=== PATIENT | male | born 1945 | race Caucasian/White ===

== ENCOUNTER 2019-03-31 15:00 | Emergency (ER) | payer MEDICARE, OTHER ==
[~2019-03-31 15:00] MED LIST: Sodium Chloride 0.9% 10 ML SDV IV PRN; Sodium Chloride 0.9% 10 ML Syringe FLUSH PRN; Sodium Chloride 0.9% 2.5 ML Syringe FLUSH PRN
--- NOTE | 2019-03-31 15:03 | EDM.PDOC ---
ED HPI GENERAL MEDICAL PROBLEM - General Stated Complaint: STROKE Time Seen by Provider: 03/31/19 15:02 Source of Information: Reports: Patient History Limitations: Reports: No Limitations - History of Present Illness INITIAL COMMENTS - FREE TEXT/NARRATIVE: HISTORY AND PHYSICAL: History of present illness: Patient is a 73-year-old male who presents to the emergency room with concerns of slurred speech. Patient was last known well at 3 AM and had slept until approximately 1 PM this afternoon. When he woke up he had slurred speech and minimal left facial droop and weakness. Patient has been seen before by Dr. Shepherd for balance and coordination problems. Was receiving physical and occupational therapy. He denies any recent head injury, trauma or falls. Patient denies any fever, chills, headache, change in vision, syncope or near syncope. Denies any chest pain, back pain, shortness of breath or cough. Denies any abdominal pain, nausea, vomiting, diarrhea, constipation or dysuria. Has not noted any blood in urine or stool. Patient has been eating and drinking appropriately. Review of systems: As per history of present illness and below otherwise all systems reviewed and negative. Past medical history: As per history of present illness and as reviewed below otherwise noncontributory. Surgical history: As per history of present illness and as reviewed below otherwise noncontributory. Social history: See social history for further information Family history: As per history of present illness and as reviewed below otherwise noncontributory. Physical exam: General: Well-developed and well nourished 73-year-old male. Alert and oriented. Slightly slurred speech noted, audible. Nontoxic appearing and in no acute distress. HEENT: Atraumatic, normocephalic, pupils equal and reactive bilaterally, negative for conjunctival pallor or scleral icterus, mucous membranes moist, TMs normal bilaterally, throat clear, does not have teeth, neck supple, nontender, trachea midline. No drooling or trismus noted. No meningeal signs. No hot potato voice noted. Lungs: Clear to auscultation, breath sounds equal bilaterally, chest nontender. Heart: S1S2, regular rate and rhythm without overt murmur Abdomen: Soft, nondistended, nontender. Negative for masses or hepatosplenomegaly. Negative for costovertebral tenderness. Pelvis: Stable nontender. Skin: Intact, warm, dry. No lesions or rashes noted. Extremities: Atraumatic, moves all extremities per self without difficulty or deficits, negative for cords or calf pain. Neurovascular unremarkable. Neuro: Awake, alert, oriented. NIH 3 (1 pt facial droop, 1 pt left arm drift, 1 pt slurred speech). CMS intact to bilateral upper and lower extremities. Notes: MRI of the head on 12/05/18: Mild to moderate generalized atrophy and small vessel ischemic changes. Old tiny right ventricular lacunar infarct. 1512: Head CT shows no acute findings. BS 119. Vital signs are stable. We do not have neurology available. NIH 3: 1 pt facial droop, 1 pt left arm drift, [address] Schuyler Ellis in [place] was consulted, she accepts this patient. Also spoke the neurology, Dr Lux who is agreeable to transfer. Recommends aspirin given prior to arrival. Patient and family are aware. Currently do not have ground transportation available area patient will be flown. Diagnostics: CBC, CMP, PT/INR, head CT, TSH, Troponin, EKG Therapeutics: Saline lock, aspirin Impression: CVA Plan: Transfer to [facility] in [place] Definitive disposition and diagnosis as appropriate pending reevaluation and review of above. - Related Data Allergies Allergy/AdvReac Type Severity Reaction Status Date / Time latex Allergy Hives Verified 03/31/19 15:12 wool Allergy Hives Verified 03/31/19 15:12 ED ROS GENERAL - Review of Systems Review Of Systems: ROS reveals no pertinent complaints other than HPI. ED EXAM, NEURO - Physical Exam Exam: See Below (See dictation) Course - Vital Signs Last Recorded V/S: Last Vital Signs Temp 98.2 F 03/31/19 15:00 Pulse 121 H 03/31/19 15:00 Resp 20 03/31/19 15:00 BP 192/114 H 03/31/19 15:00 Pulse Ox 97 03/31/19 15:00 - Orders/Labs/Meds Orders: Active Orders 24 hr Category Date Time Status Assess Neurological Status [RC] ASDIRECTED Care 03/31/19 15:00 Ordered Cardiac Monitoring [RC] . DIRECTED Care 03/31/19 15:00 Ordered EKG Documentation Completion [RC] STAT Care 03/31/19 15:00 Ordered Initiate Acute Stroke Protocol [RC] STAT Care 03/31/19 15:00 Ordered NIH Stroke Scale [RC] ASDIRECTED Care 03/31/19 15:00 Ordered Oxygen Therapy [RC] ASDIRECTED Care 03/31/19 15:00 Ordered CBC WITH AUTO DIFF [HEME] Stat Lab 03/31/19 15:00 Ordered COMPREHENSIVE METABOLIC PN,CMP [CHEM] Stat Lab 03/31/19 15:00 Ordered INR,PT,PROTHROMBIN TIME [COAG] Stat Lab 03/31/19 15:00 Ordered PTT,PARTIAL THROMBOPLSTIN TIME [COAG] Stat Lab 03/31/19 15:00 Ordered TROPONIN I [CHEM] Stat Lab 03/31/19 15:00 Ordered TSH [CHEM] Stat Lab 03/31/19 15:00 Ordered Sodium Chloride 0.9% [Normal Saline] Med 03/31/19 15:00 Ordered 10 ml IV ASDIRECTED PRN Sodium Chloride 0.9% [Saline Flush] Med 03/31/19 15:00 Ordered 10 ml FLUSH ASDIRECTED PRN Sodium Chloride 0.9% [Saline Flush] Med 03/31/19 15:00 Ordered 2.5 ml FLUSH ASDIRECTED PRN Peripheral IV Insertion Adult [OM.PC] Stat Oth 03/31/19 15:00 Ordered Medication Orders Sodium Chloride (Saline Flush) 10 ml FLUSH ASDIRECTED PRN PRN Reason: Keep Vein Open Sodium Chloride (Saline Flush) 2.5 ml FLUSH ASDIRECTED PRN PRN Reason: Keep Vein Open Sodium Chloride (Normal Saline) 10 ml IV ASDIRECTED PRN PRN Reason: IV Use Meds: Medications Generic Name Dose Route Start Last Admin Trade Name Freq PRN Reason Stop Dose Admin Sodium Chloride 10 ml 03/31/19 15:00 Saline Flush FLUSH ASDIRECTED PRN Keep Vein Open Sodium Chloride 2.5 ml 03/31/19 15:00 Saline Flush FLUSH ASDIRECTED PRN Keep Vein Open Sodium Chloride 10 ml 03/31/19 15:00 Normal Saline IV ASDIRECTED PRN IV Use Discontinued Medications Generic Name Dose Route Start Last Admin Trade Name Freq PRN Reason Stop Dose Admin Aspirin 324 mg 03/31/19 15:29 Aspirin PO 03/31/19 15:30 ONETIME ONE Departure - Departure Time of Disposition: 15:33 Disposition: DC/Tfer to Acute Hospital 02 Clinical Impression: Cerebrovascular accident (CVA) Qualifiers: CVA mechanism: unspecified Qualified Code(s): I63.9 - Cerebral infarction, unspecified - Discharge Information - My Orders Last 24 Hours: My Active Orders 03/31/19 15:00 Assess Neurological Status [RC] ASDIRECTED Cardiac Monitoring [RC] . DIRECTED EKG Documentation Completion [RC] STAT Initiate Acute Stroke Protocol [RC] STAT NIH Stroke Scale [RC] ASDIRECTED Oxygen Therapy [RC] ASDIRECTED CBC WITH AUTO DIFF [HEME] Stat COMPREHENSIVE METABOLIC PN,CMP [CHEM] Stat INR,PT,PROTHROMBIN TIME [COAG] Stat PTT,PARTIAL THROMBOPLSTIN TIME [COAG] Stat TROPONIN I [CHEM] Stat TSH [CHEM] Stat Sodium Chloride 0.9% [Normal Saline] 10 ml IV ASDIRECTED PRN Sodium Chloride 0.9% [Saline Flush] 10 ml FLUSH ASDIRECTED PRN Sodium Chloride 0.9% [Saline Flush] 2.5 ml FLUSH ASDIRECTED PRN Peripheral IV Insertion Adult [OM.PC] Stat - Assessment/Plan Last 24 Hours: My Active Orders 03/31/19 15:00 Assess Neurological Status [RC] ASDIRECTED Cardiac Monitoring [RC] . DIRECTED EKG Documentation Completion [RC] STAT Initiate Acute Stroke Protocol [RC] STAT NIH Stroke Scale [RC] ASDIRECTED Oxygen Therapy [RC] ASDIRECTED CBC WITH AUTO DIFF [HEME] Stat COMPREHENSIVE METABOLIC PN,CMP [CHEM] Stat INR,PT,PROTHROMBIN TIME [COAG] Stat PTT,PARTIAL THROMBOPLSTIN TIME [COAG] Stat TROPONIN I [CHEM] Stat TSH [CHEM] Stat Sodium Chloride 0.9% [Normal Saline] 10 ml IV ASDIRECTED PRN Sodium Chloride 0.9% [Saline Flush] 10 ml FLUSH ASDIRECTED PRN Sodium Chloride 0.9% [Saline Flush] 2.5 ml FLUSH ASDIRECTED PRN Peripheral IV Insertion Adult [OM.PC] Stat
--- NOTE | 2019-03-31 15:16 | CT ---
EXAMINATION: Non contrast CT head. Coronal and sagittal reformats. HISTORY: Stroke code FINDINGS: No evidence of intra or extra axial hemorrhage, mass, midline shift, hydrocephalus or edema. Periventricular and subcortical white matter hypodensities are noted. Old periventricular lacunar infarcts. No hypoattenuation changes in the major vascular territories to suggest acute infarct. No abnormal intracranial calcifications are detected. No evidence of substantial vascular calcifications. Paranasal sinuses and mastoid air cells are well aerated without substantial findings. Pituitary fossa appears unremarkable. Orbits and globes are symmetric. Calvarium is intact. No evidence of skull fracture. IMPRESSION: 1. No acute intracranial findings. 2. Mild small vessel ischemic changes. 3. Old tiny periventricular lacunar infarcts.
[2019-03-31] MEDS ORDERED: Aspirin 81 MG Tab.Chew PO ONE (15:29)
[2019-03-31 15:58] LABS: BLOOD UREA NITROGEN,BUN 12 mg/dL (7.0-18.0); CARBON DIOXIDE,CO2 28.5 mmol/L (21.0-32.0); CHLORIDE,CL 105 mmol/L (98-107); GLUCOSE RANDOM 108 mg/dL (74-106); POTASSIUM,K 3.9 mmol/L (3.5-5.1); SODIUM,NA 141 mmol/L (136-148)
== END 2019-03-31 15:50 ==
LOC: MW.ED 15:00
DX: I63.9 Cerebral infarction, unspecified (principal); F17.210 Nicotine dependence, cigarettes, uncomplicated; Z91.040 Latex allergy status; Z91.048 Other nonmedicinal substance allergy status
CPT/HCPCS: 36415; 70450; 80053; 84443; 84484; 85025; 85610; 85730; 93005; 99285; A9270

== ENCOUNTER 2020-01-12 20:10 | Emergency (ER) | payer MEDICARE, OTHER ==
[2020-01-12] MEDS ORDERED: Sodium Chloride 0.9% 2.5 ML Syringe FLUSH PRN (20:13)
[2020-01-12] MEDS ORDERED: Sodium Chloride 0.9% 10 ML Syringe FLUSH PRN (20:13)
[2020-01-12] MEDS ORDERED: Atropine 0.1 MG/ML 10 ML Syringe IVPUSH ONE ×2 (20:39→21:45)
[2020-01-12 21:01] LABS: BLOOD UREA NITROGEN,BUN 31 mg/dL (7.0-18.0); CARBON DIOXIDE,CO2 25.6 mmol/L (21.0-32.0); CHLORIDE,CL 104 mmol/L (98-107); GLUCOSE RANDOM 134 mg/dL (74-106); POTASSIUM,K 4.8 mmol/L (3.5-5.1); SODIUM,NA 140 mmol/L (136-148)
--- NOTE | 2020-01-12 21:03 | CR ---
Chest: Portable view of the chest was obtained. Comparison: No prior chest imaging. Air is noted between the liver and diaphragm which is felt to represent interposition of bowel which I feel is a normal variant. Heart size and mediastinum are normal. Lungs are clear with no acute parenchymal change. Bony structures are grossly intact. Impression: 1. Nothing acute is appreciated on portable chest x-ray. Diagnostic code #1 This report was dictated in MDT
--- NOTE | 2020-01-12 21:21 | EDM.PDOC ---
ED HPI GENERAL MEDICAL PROBLEM - General Chief Complaint: Cardiovascular Problem Stated Complaint: EMS ARRIVAL Time Seen by Provider: 01/12/20 20:12 Source of Information: Reports: Patient, EMS History Limitations: Reports: No Limitations - History of Present Illness INITIAL COMMENTS - FREE TEXT/NARRATIVE: History of present illness: [Patient is 74-year-old male presents by EMS with bradycardia, vomiting, dizziness. reports that he is dealt with dizziness recently, she also reports that he looks pale compared to his baseline. Patient states he follows up with alida Henry, who was instructed him in the past that he would likely need a pacemaker. On arrival his heart rate is in the 30s. He denies chest pain. He denies shortness of breath. He does endorse some dizziness. He had 1-2 episodes of vomiting earlier today but currently denies nausea. He denies abdominal pain. Denies GI bleed. Denies fever or chills. Denies known exposure to anyone with COVID-19. ] Review of systems: As per history of present illness and below otherwise all systems reviewed and negative. Past medical history: As per history of present illness and as reviewed below otherwise noncontributory. Surgical history: As per history of present illness and as reviewed below otherwise noncontributory. Social history: No reported history of drug or alcohol abuse. Family history: As per history of present illness and as reviewed below otherwise noncontributory. Physical exam: General: Awake, alert, no acute distress, A&O X3. HEENT: Atraumatic, normocephalic, pupils reactive, conjunctival pallor, mucous membranes moist, throat clear, neck supple, nontender, trachea midline. Lungs: Clear to auscultation, breath sounds equal bilaterally, chest nontender. Heart: bradycardic, normal S1S2, no JVD. Abdomen: Soft, nondistended, nontender. Negative for masses or hepatosplenomegaly. Negative for costovertebral tenderness. Pelvis: Stable nontender. Genitourinary: Deferred. Rectal: ANNE MARIE, claim review medical director: BRIE Griffin. Patient is hemoccult positive, no gross blood, no hemorrhoids, no masses. Skin: pale, warm Extremities: Atraumatic, no edema, Neurovascular unremarkable. Neuro: Motor and sensory grossly intact throughout. Exam nonfocal. Diagnostics: [] Therapeutics: [] Impression: [] Plan: [] Definitive disposition and diagnosis as appropriate pending reevaluation and review of above. - Related Data Allergies Allergy/AdvReac Type Severity Reaction Status Date / Time latex Allergy Hives Verified 03/31/19 15:12 wool Allergy Hives Verified 03/31/19 15:12 Home Meds: Home Meds Aspirin 81 mg PO DAILY 01/12/20 [History] carvediloL [Carvedilol] 1 tab PO ASDIRECTED 01/12/20 [History] Past Medical History Genitourinary History: Reports: Renal Calculus Psychiatric History: Reports: Depression - Infectious Disease History Infectious Disease History: Reports: None Social & Family History - Family History Family Medical History: Noncontributory ED ROS GENERAL - Review of Systems Review Of Systems: Comprehensive ROS is negative, except as noted in HPI. ED EXAM, GENERAL - Physical Exam Exam: See Below (see h and p) EKG INTERPRETATION EKG Date: 01/12/20 Time: 20:12 Rhythm: NSR Rate (Beats/Min): 37 [place]: Normal P-Wave: Present QRS: Normal ST-T: Depressed (depressed T waves - V5-6.) QT: Normal Comparison: Change From Previous EKG (previous EKG in 2019 was not bradycardic) EKG Interpretation Comments: sinus aj Course - Vital Signs Text/Narrative:: 1 unit of blood ordered here. Patient has had 2 doses of atropine, responded well both times. Patient will be transferred to [place] for further work-up and evaluation and consultation with cardiology for a likely pacemaker placement. Patient is agreeable with plan to be transported. Currently heart rate is in the 50s. Blood pressure is stable. He is answer questions appropriately. Last Recorded V/S: Last Vital Signs Temp 36.2 C 01/12/20 20:10 Pulse 65 01/12/20 22:36 Resp 17 01/12/20 22:36 BP 123/53 L 01/12/20 22:36 Pulse Ox 98 01/12/20 22:36 - Orders/Labs/Meds Orders: Active Orders 24 hr Category Date Time Status EKG Documentation Completion [RC] STAT Care 01/12/20 20:13 Active RED BLOOD CELLS LP [BBK] Stat Lab 01/12/20 20:50 Results TYPE AND SCREEN [BBK] Stat Lab 01/12/20 20:50 Results Saline Lock Insert [OM.PC] Stat [facility] 01/12/20 20:13 Ordered Transfuse RBC [Transfuse Red Blood Cells] [COMM] Stat [facility] 01/12/20 21:10 Ordered Labs: Laboratory Tests 01/12/20 01/12/20 01/12/20 Range/Units 20:30 20:30 20:30 WBC 6.58 (4.0-11.0) K/uL RBC 3.19 L (4.50-5.90) M/uL Hgb 6.2 L (13.0-17.0) g/dL Hct 22.2 L (38.0-50.0) % MCV 69.6 L (80.0-98.0) fL MCH 19.4 L (27.0-32.0) pg MCHC 27.9 L (31.0-37.0) g/dL RDW Std Deviation 44.2 (28.0-62.0) fl RDW Coeff of Anamika 17 H (11.0-15.0) % Plt Count 412 H (150-400) K/uL MPV 10.10 (7.40-12.00) fL Neut % (Auto) 51.5 (48.0-80.0) % Lymph % (Auto) 33.3 (16.0-40.0) % Isabela % (Auto) 8.7 (0.0-15.0) % Eos % (Auto) 4.7 (0.0-7.0) % Baso % (Auto) 1.8 H (0.0-1.5) % Neut # (Auto) 3.4 (1.4-5.7) K/uL Lymph # (Auto) 2.2 (0.6-2.4) K/uL Isabela # (Auto) 0.6 (0.0-0.8) K/uL Eos # (Auto) 0.3 (0.0-0.7) K/uL Baso # (Auto) 0.1 (0.0-0.1) K/uL Nucleated RBC % 0.0 /100WBC Nucleated RBCs # 0 K/uL INR 1.10 Sodium 140 (136-148) mmol/L Potassium 4.8 (3.5-5.1) mmol/L Chloride 104 (98-107) mmol/L Carbon Dioxide 25.6 (21.0-32.0) mmol/L BUN 31 H (7.0-18.0) mg/dL Creatinine 1.6 H (0.8-1.3) mg/dL Est Cr Clr Drug Dosing TNP Estimated GFR (MDRD) 42.2 ml/min Glucose 134 H (74-106) mg/dL Calcium 8.7 (8.5-10.1) mg/dL Total Bilirubin 0.4 (0.2-1.0) mg/dL AST 18 (15-37) IU/L ALT 19 (14-63) IU/L Alkaline Phosphatase 115 (46-116) U/L Troponin I < 0.050 (0.000-0.056) ng/mL B-Natriuretic Peptide (<100) PG/ML Total Protein 6.5 (6.4-8.2) g/dL Albumin 3.4 (3.4-5.0) g/dL Globulin 3.1 (2.6-4.0) g/dL Albumin/Globulin Ratio 1.1 (0.9-1.6) Blood Type Antibody Screen Crossmatch 01/12/20 01/12/20 Range/Units 20:30 20:50 WBC (4.0-11.0) K/uL RBC (4.50-5.90) M/uL Hgb (13.0-17.0) g/dL Hct (38.0-50.0) % MCV (80.0-98.0) fL MCH (27.0-32.0) pg MCHC (31.0-37.0) g/dL RDW Std Deviation (28.0-62.0) fl RDW Coeff of Anamika (11.0-15.0) % Plt Count (150-400) K/uL MPV (7.40-12.00) fL Neut % (Auto) (48.0-80.0) % Lymph % (Auto) (16.0-40.0) % Isabela % (Auto) (0.0-15.0) % Eos % (Auto) (0.0-7.0) % Baso % (Auto) (0.0-1.5) % Neut # (Auto) (1.4-5.7) K/uL Lymph # (Auto) (0.6-2.4) K/uL Isabela # (Auto) (0.0-0.8) K/uL Eos # (Auto) (0.0-0.7) K/uL Baso # (Auto) (0.0-0.1) K/uL Nucleated RBC % /100WBC Nucleated RBCs # K/uL INR Sodium (136-148) mmol/L Potassium (3.5-5.1) mmol/L Chloride (98-107) mmol/L Carbon Dioxide (21.0-32.0) mmol/L BUN (7.0-18.0) mg/dL Creatinine (0.8-1.3) mg/dL Est Cr Clr Drug Dosing Estimated GFR (MDRD) ml/min Glucose (74-106) mg/dL Calcium (8.5-10.1) mg/dL Total Bilirubin (0.2-1.0) mg/dL AST (15-37) IU/L ALT (14-63) IU/L Alkaline Phosphatase (46-116) U/L Troponin I (0.000-0.056) ng/mL B-Natriuretic Peptide 240 H (<100) PG/ML Total Protein (6.4-8.2) g/dL Albumin (3.4-5.0) g/dL Globulin (2.6-4.0) g/dL Albumin/Globulin Ratio (0.9-1.6) Blood Type A NEGATIVE Antibody Screen NEGATIVE Crossmatch See Detail Meds: Medications Discontinued Medications Generic Name Dose Route Start Last Admin Trade Name Freq PRN Reason Stop Dose Admin Atropine Sulfate 0.5 mg 01/12/20 20:39 01/12/20 20:53 Atropine 0.1 Mg/Ml IVPUSH 01/12/20 20:40 0.5 mg ONETIME ONE Administration Atropine Sulfate 5 mg 01/12/20 21:45 01/12/20 22:44 Atropine 0.1 Mg/Ml IVPUSH 01/12/20 21:46 5 mg ONETIME ONE Administration Sodium Chloride 10 ml 01/12/20 20:13 01/12/20 20:53 Saline Flush FLUSH 10 ml ASDIRECTED PRN Administration Keep Vein Open Sodium Chloride 2.5 ml 01/12/20 20:13 01/12/20 20:53 Saline Flush FLUSH 2.5 ml ASDIRECTED PRN Administration Keep Vein Open Departure - Departure Time of Disposition: 21:47 Disposition: DC/Tfer to Acute Hospital 02 Reason for Transfer *Q: Other (Need pacemaker placed - interventional cardiology consult) Condition: Serious Clinical Impression: Bradycardia, Anemia, Dizziness Instructions: Bradycardia, Adult Referrals: Kojo Marshall MD [Primary Care Provider] - Forms: ED Department Discharge Critical Care Note - Critical Care Note Total Time (mins): 40 Comments: Critical care: 40 minutes Patient presented bradycardic, pale, anemia, required frequent monitoring and reexaminations to monitor for hemodynamic stability. Sepsis Event Note - Focused Exam Vital Signs: Vital Signs Temp Pulse Resp BP Pulse Ox 01/12/20 22:36 65 17 123/53 L 98 01/12/20 22:18 46 L 17 104/44 L 98 01/12/20 22:02 41 L 18 100/45 L 100 01/12/20 21:35 50 L 18 101/50 L 99 01/12/20 21:17 44 L 17 121/85 99 01/12/20 20:10 36.2 C 31 L 16 109/43 L 97 Date Exam was Performed: 01/12/20 Time Exam was Performed: 23:20 - My Orders Last 24 Hours: My Active Orders 01/12/20 20:50 RED BLOOD CELLS LP [BBK] Stat 01/12/20 21:10 Transfuse RBC [Transfuse Red Blood Cells] [COMM] Stat - Assessment/Plan Last 24 Hours: My Active Orders 01/12/20 20:50 RED BLOOD CELLS LP [BBK] Stat 01/12/20 21:10 Transfuse RBC [Transfuse Red Blood Cells] [COMM] Stat
== END 2020-01-12 22:41 ==
LOC: MW.ED 20:10
DX: D64.9 Anemia, unspecified (principal); R00.1 Bradycardia, unspecified; Z91.040 Latex allergy status; Z91.048 Other nonmedicinal substance allergy status; Z79.82 Long term (current) use of aspirin
CPT/HCPCS: 36415; 36430; 71045; 80053; 83880; 84484; 85025; 85610; 86850; 86900; 86901; 86920; 86921; 86922; 93005; 96374; 96376; 99285; J0461; P9016; 99291

== ENCOUNTER 2021-11-17 22:54 | Inpatient (IN) | payer MEDICARE, OTHER ==
[2021-11-17] MEDS ORDERED: Sodium Chloride 0.9% 2.5 ML Syringe FLUSH PRN (23:04)
[2021-11-17] MEDS ORDERED: Sodium Chloride 0.9% 10 ML Syringe FLUSH PRN (23:04)
[2021-11-17] MEDS ORDERED: Pantoprazole 40 MG in Sodium Chloride 0.9% 10 ML IVPUSH ONE (23:05)
[2021-11-17] MEDS ORDERED: Sodium Chloride 0.9% 1,000 ML IV STA (23:05)
[2021-11-17 23:58] LABS: BLOOD UREA NITROGEN,BUN 32 mg/dL (7.0-18.0); CARBON DIOXIDE,CO2 24.2 mmol/L (21.0-32.0); CHLORIDE,CL 109 mmol/L (98-107); GLUCOSE RANDOM 163 mg/dL (74-106); SODIUM,NA 149 mmol/L (136-148)
[2021-11-18] MEDS ORDERED: Sodium Chloride 0.9% 1,000 ML IV STA (00:04)
[2021-11-18] MEDS ORDERED: Cefepime 2 GM in Sodium Chloride 0.9% 50 ML IV ONE (00:05)
[2021-11-18] MEDS ORDERED: Ondansetron 4 MG/2 ML SDV IVPUSH ONE (01:10)
[2021-11-18] MEDS ORDERED: Iopamidol 755 MG/ML 500 ML Multipack Bottle IVPUSH STA (01:13)
[2021-11-18] MEDS ORDERED: Metoclopramide 10 MG/2 ML SDV IVPUSH ONE (01:56)
[2021-11-18] MEDS ORDERED: Lactated Ringers 1,000 ML IV ONE (02:10)
[2021-11-18] MEDS ORDERED: Lactated Ringers 1,000 ML IV SCH (03:30)
[2021-11-18] MEDS: Ondansetron 4 MG/2 ML SDV IVPUSH PRN ×2 (04:44→20:23)
[2021-11-18 06:22] LABS: BLOOD UREA NITROGEN,BUN 35 mg/dL (7.0-18.0); CARBON DIOXIDE,CO2 25.1 mmol/L (21.0-32.0); CHLORIDE,CL 113 mmol/L (98-107); GLUCOSE RANDOM 122 mg/dL (74-106); POTASSIUM,K 3.8 mmol/L (3.5-5.1); SODIUM,NA 147 mmol/L (136-148)
[2021-11-18] MEDS: Pantoprazole 40 MG in Sodium Chloride 0.9% 10 ML IVPUSH SCH ×2 (08:03→20:05)
[2021-11-18] MEDS ORDERED: Propofol 200 MG/20 ML SDV ONE (10:19)
[2021-11-18] MEDS ORDERED: Lidocaine 2% 5 ML SDV ONE (10:19)
[2021-11-18] MEDS ORDERED: Ondansetron 4 MG/2 ML SDV ONE (10:19)
[2021-11-18] MEDS: Nicotine 14 MG/24 Hr Patch TRDERM SCH (15:55)
[2021-11-19] MEDS: Ondansetron 4 MG/2 ML SDV IVPUSH PRN (00:15)
[2021-11-19 06:22] LABS: BLOOD UREA NITROGEN,BUN 18 mg/dL (7.0-18.0); CARBON DIOXIDE,CO2 26.3 mmol/L (21.0-32.0); CHLORIDE,CL 110 mmol/L (98-107); GLUCOSE RANDOM 93 mg/dL (74-106); POTASSIUM,K 3.1 mmol/L (3.5-5.1); SODIUM,NA 146 mmol/L (136-148)
[2021-11-19] MEDS: Pantoprazole 40 MG in Sodium Chloride 0.9% 10 ML IVPUSH SCH (08:00)
[2021-11-19] MEDS: Nicotine 14 MG/24 Hr Patch TRDERM SCH (08:00)
[2021-11-19] MEDS ORDERED: NICOTINE Remove Patch TRDERM SCH (09:00)
[2021-11-19] MEDS ORDERED: Potassium Chloride 20 MEQ Tab.ER PO ONE (09:34)
== END 2021-11-19 11:45 | disposition home or self-care (01) | DRG 378 ==
LOC: MW.ED 22:54 → MW.ICU 11-18 02:14
PROVIDERS: ADMIT Internal Medicine; ATTEND Internal Medicine
PROC: 0DB68ZX Excision of Stomach, Via Natural or Artificial Opening Endoscopic, Diagnostic (ICD-10-PCS; principal; 2021-11-18)
DX: K29.71 Gastritis, unspecified, with bleeding (principal); K92.2 Gastrointestinal hemorrhage, unspecified; I42.9 Cardiomyopathy, unspecified; D62 Acute posthemorrhagic anemia; E87.2 Acidosis; E78.00 Pure hypercholesterolemia, unspecified; I10 Essential (primary) hypertension; F32.A Depression, unspecified; Z86.73 Personal history of transient ischemic attack (TIA), and cerebral infarction without residual deficits; Z91.048 Other nonmedicinal substance allergy status; Z79.82 Long term (current) use of aspirin; Z79.02 Long term (current) use of antithrombotics/antiplatelets; Z79.899 Other long term (current) drug therapy; Z20.822 Contact with and (suspected) exposure to COVID-19; Z91.040 Latex allergy status; Z95.0 Presence of cardiac pacemaker; G62.9 Polyneuropathy, unspecified; Z87.442 Personal history of urinary calculi; F17.210 Nicotine dependence, cigarettes, uncomplicated
CPT/HCPCS: 36415 ×2; 43752; 71045; 74018; 74177; 80053; 83605 ×2; 84484; 85018; 85025; 86850; 86900; 86901; 87040 ×2; 93005; 96365; 96368; 96375 ×2; 99285; C9113; J0692; J2405; J2765; J3370; J7030 ×2; J7050; J7120; Q9967; U0002; 80048; 81001; 83735; 85007; 85027; 93010; A9270-GY; J2704

== ENCOUNTER 2023-01-29 12:25 | Emergency (ER) | payer MEDICARE, OTHER ==
[2023-01-29] MEDS ORDERED: Sodium Chloride 0.9% 2.5 ML Syringe FLUSH PRN (12:31)
[2023-01-29] MEDS ORDERED: Sodium Chloride 0.9% 10 ML Syringe FLUSH PRN (12:31)
[2023-01-29] MEDS ORDERED: Sodium Chloride 0.9% 2,000 ML IV ONE (12:32)
[2023-01-29] MEDS ORDERED: Pantoprazole 80 MG in Sodium Chloride 0.9% 10 ML IVPUSH ONE (12:33)
[2023-01-29] MEDS ORDERED: Ondansetron 4 MG/2 ML SDV IVPUSH ONE ×2 (12:33→14:30)
[2023-01-29 13:19] LABS: BASOPHILS PERCENT AUTO 0.2 % (0.0-1.5); EOSINOPHILS ABSOLUTE AUTO 0.1 K/uL (0.0-0.7); EOSINOPHILS PERCENT AUTO 0.9 % (0.0-7.0); HEMOGLOBIN 9.2 g/dL (13.0-17.0); LYMPHOCYTES PERCENT AUTO 22.2 % (16.0-40.0); MEAN CORPUSCULAR HEMOGLOBIN 28.6 pg (27.0-32.0); MEAN CORPUSCULAR HGB CONC 29.7 g/dL (31.0-37.0); MEAN CORPUSCULAR VOLUME 96.3 fL (80.0-98.0); MONOCYTES ABSOLUTE AUTO 0.7 K/uL (0.0-0.8); NEUTROPHILS ABSOLUTE AUTO 6.3 K/uL (1.4-5.7); NEUTROPHILS PERCENT AUTO 68.7 % (48.0-80.0); PLATELET COUNT,PLT 490 K/uL (150-400); RED BLOOD CELL COUNT 3.22 M/uL (4.50-5.90); WHITE BLOOD CELL COUNT,WBC 9.18 K/uL (4.0-11.0)
[2023-01-29 13:29] LABS: INR 1.12 (0.86-1.11)
[2023-01-29 13:43] LABS: A/G RATIO 0.8 (0.9-1.6); ALBUMIN 2.9 g/dL (3.4-5.0); BILIRUBIN TOTAL 0.3 mg/dL (0.2-1.0); CALCIUM 9.1 mg/dL (8.5-10.1); CARBON DIOXIDE,CO2 22.5 mmol/L (21.0-32.0); CREATININE 1.2 mg/dL (0.8-1.3); EST CRCL DRUG DOSING (CG) 44.83 mL/min; POTASSIUM,K 4.5 mmol/L (3.5-5.1); PROTEIN TOTAL,TP 6.4 g/dL (6.4-8.2)
[2023-01-29] MEDS ORDERED: Iopamidol 755 MG/ML 500 ML Multipack Bottle IVPUSH STA (14:33)
[2023-01-29] MEDS ORDERED: Cefepime 2 GM in Sodium Chloride 0.9% 50 ML IV ONE (14:46)
[2023-01-29] MEDS ORDERED: Morphine 2 MG/ML SYRINGE IVPUSH ONE (15:48)
[2023-01-29] MEDS ORDERED: Prochlorperazine 10 MG/2 ML SDV IVPUSH ONE (15:48)
== END 2023-01-29 21:36 ==
LOC: MW.ED 12:25
DX: K92.2 Gastrointestinal hemorrhage, unspecified (principal); I10 Essential (primary) hypertension; E78.00 Pure hypercholesterolemia, unspecified; Z91.040 Latex allergy status; Z91.048 Other nonmedicinal substance allergy status; Z79.82 Long term (current) use of aspirin; Z79.899 Other long term (current) drug therapy; Z79.02 Long term (current) use of antithrombotics/antiplatelets; Z86.73 Personal history of transient ischemic attack (TIA), and cerebral infarction without residual deficits
CPT/HCPCS: 36415; 36430; 71045; 74018; 74177; 80053; 83605; 83690; 84484; 85025; 85610; 86850; 86900; 86901; 86920; 87040; 93005; 96361; 96365; 96375; 96376; 99285; C9113; J0692; J0780; J2270; J2405; J3490; J7030; P9016; Q9967

== ENCOUNTER 2024-05-26 16:11 | Observation (INO) | payer MEDICARE, OTHER ==
[2024-05-26] MEDS: Sodium Chloride 0.9% 1,000 ML IV ONE ×2 (17:09→23:01)
[2024-05-26 17:18] LABS: BASOPHILS ABSOLUTE AUTO 0.08 K/uL (0.00-0.20); BASOPHILS PERCENT AUTO 0.9 % (0.0-1.0); EOSINOPHILS ABSOLUTE AUTO 0.09 K/uL (0.00-0.45); HEMATOCRIT 38.8 % (42.0-52.0); HEMOGLOBIN 13.6 g/dL (14.0-18.0); IMMATURE GRAN ABSOLUTE AUTO 0.03 K/uL (0.00-0.05); IMMATURE GRAN PERCENT AUTO 0.3 % (0.0-0.4); LYMPHOCYTES ABSOLUTE AUTO 0.88 K/uL (1.00-4.80); LYMPHOCYTES PERCENT AUTO 9.5 % (24.0-44.0); MEAN CORPUSCULAR HEMOGLOBIN 30.4 pg (28.0-32.0); MEAN CORPUSCULAR HGB CONC 35.1 g/dL (32.0-36.0); MEAN CORPUSCULAR VOLUME 86.8 fL (83.0-99.0); MEAN PLATELET VOLUME 10.7 fL (9.4-12.4); MONOCYTES ABSOLUTE AUTO 0.92 K/uL (0.00-0.80); MONOCYTES PERCENT AUTO 9.9 % (0.0-8.0); NEUTROPHILS ABSOLUTE AUTO 7.26 K/uL (1.80-7.70); NEUTROPHILS PERCENT AUTO 78.4 % (41.0-71.0); PLATELET COUNT,PLT 375 K/uL (150-400); RED BLOOD CELL COUNT 4.47 M/uL (4.52-5.90); WHITE BLOOD CELL COUNT,WBC 9.26 K/uL (3.9-11.3)
[2024-05-26 18:04] LABS: A/G RATIO 0.4 (0.9-1.6); ALBUMIN 2.1 g/dL (3.4-5.0); BILIRUBIN TOTAL 3.1 mg/dL (0.2-1.0); CALCIUM 9.6 mg/dL (8.5-10.1); CARBON DIOXIDE,CO2 27.7 mmol/L (21.0-32.0); CREATININE 1.1 mg/dL (0.8-1.3); EST CRCL DRUG DOSING (CG) 42.42 mL/min; TSH ULTRASENSITIVE 3.08 uIU/mL (0.36-3.74)
[2024-05-26 18:16] LABS: CORONAVIRUS COVID-19 NAA NEGATIVE (NEGATIVE); INFLUENZA A NAA NEGATIVE (NEGATIVE); INFLUENZA B NAA NEGATIVE (NEGATIVE); RESPIRATORY SYNCYTIAL VIR NAA NEGATIVE (NEGATIVE)
[2024-05-26] MEDS: Iopamidol 755 MG/ML 500 ML Multipack Bottle IVPUSH STA (18:49)
[2024-05-26 19:16] LABS: GLUCOSE,URINE NEGATIVE (NEGATIVE); KETONES,URINE NEGATIVE (NEGATIVE); LEUKOCYTE ESTERASE,URINE NEGATIVE (NEGATIVE); NITRITE,URINE NEGATIVE (NEGATIVE); OCCULT BLOOD,URINE LARGE (NEGATIVE); PROTEIN,URINE 30 mg/dL (NEGATIVE); UROBILINOGEN,URINE 0.2 EU/dL (<2.0)
[2024-05-26 19:27] LABS: APPEARANCE,URINE SLT CLOUDY; BILIRUBIN,URINE SMALL (NEGATIVE); COLOR,URINE DARK YELLOW
[2024-05-26 19:28] LABS: AMORPHOUS SEDIMENT,URINE MODERATE (NEGATIVE); BACTERIA,URINE FEW (NEGATIVE); EPITHELIAL CELLS,URINE RARE (NONE-FEW); FINE GRANULAR CASTS,URINE 0-2 (NEGATIVE); HYALINE CASTS,URINE 0-3 (0-2/LPF); MUCUS,URINE RARE (NONE-MOD); RBC,URINE 0-2 (0-2/HPF)
[2024-05-26 21:35] LABS: INR 1.14 (0.86-1.11)
[2024-05-26 21:41] LABS: POTASSIUM,K 3.6 mmol/L (3.5-5.1)
[2024-05-26 21:58] LABS: A/G RATIO 0.4 (0.9-1.6); ALBUMIN 1.9 g/dL (3.4-5.0); BILIRUBIN TOTAL 3.3 mg/dL (0.2-1.0); CALCIUM 9.2 mg/dL (8.5-10.1); CARBON DIOXIDE,CO2 26.6 mmol/L (21.0-32.0); CREATININE 1.1 mg/dL (0.8-1.3); EST CRCL DRUG DOSING (CG) 42.42 mL/min; PROTEIN TOTAL,TP 6.5 g/dL (6.4-8.2)
[2024-05-26] MEDS: Ondansetron 4 MG/2 ML SDV IVPUSH ONE (23:01)
[2024-05-27] MEDS ORDERED: Morphine 4 MG/ML Syringe IVPUSH PRN ×2 (00:17→08:34)
[2024-05-27] MEDS ORDERED: Acetaminophen 325 MG Tab PO PRN (00:18)
[2024-05-27] MEDS ORDERED: Ondansetron 4 MG/2 ML SDV IVPUSH PRN (00:19)
[2024-05-27] MEDS: Sodium Chloride 0.9% 1,000 ML IV ONE (00:32)
[2024-05-27] MEDS: Amitriptyline 25 MG Tab PO SCH (00:58)
[2024-05-27] MEDS: Sodium Chloride 0.9% 1,000 ML IV SCH (00:59)
[2024-05-27] MEDS: Morphine 4 MG/ML Syringe IVPUSH SCH (00:59)
[2024-05-27] MEDS: LORazepam 2 MG/ML SDV IVPUSH SCH (00:59)
[2024-05-27] MEDS ORDERED: LORazepam 2 MG/ML SDV IVPUSH PRN ×2 (12:00→12:36)
[2024-05-27] MEDS: Morphine 2 MG/ML SYRINGE IVPUSH SCH (13:25)
[2024-05-27] MEDS: Scopalamine 1mg/3day Transdermal Patch TRDERM SCH (13:25)
[2024-05-27] MEDS ORDERED: Amitriptyline 25 MG Tab PO SCH (21:00)
[2024-05-28] MEDS: oxyCODONE 5 MG/5 ML Cup PO ONE (14:43)
== END 2024-05-28 15:00 | disposition hospice, home (50) ==
LOC: MW.ED 16:11 → MW.MS 22:43
PROVIDERS: ADMIT Family Medicine; ATTEND Family Medicine
DX: C22.8 Malignant neoplasm of liver, primary, unspecified as to type (principal); C79.89 Secondary malignant neoplasm of other specified sites; I10 Essential (primary) hypertension; E78.00 Pure hypercholesterolemia, unspecified; R17 Unspecified jaundice; Z79.82 Long term (current) use of aspirin; Z79.899 Other long term (current) drug therapy
CPT/HCPCS: 0241U; 36415; 70450; 71046; 74177; 76705; 80053; 81001; 83690; 84443; 84484; 85025; 85610; 96361; 96374; 96375; 96376; 99285; A9270; G0378; J2060; J2270; J2405; J7030; Q9967